=== PATIENT | male | born 1985 | race Caucasian/White ===

== ENCOUNTER 2017-05-03 10:10 | Emergency (ER) | payer OTHER ==
[~2017-05-03] VITALS: Ht 177.8 cm; Wt 100.0 kg
[2017-05-03] MEDS ORDERED: GLUCAGON FOR INJ 1 MG VIAL (J1610) IV STA (10:15)
[2017-05-03] MEDS ORDERED: ONDANSETRON 4MG/2ML VIAL (J2405) IV ONE (10:30)
[2017-05-03] MEDS ORDERED: NS 1,000 ML IV ONE (11:45)
--- NOTE | 2017-05-03 11:49 | REP ---
Chest two views HISTORY: None Comparison: None The lungs are clear. The heart is normal in size. The pulmonary vasculature is normal in appearance. The bony structure is intact. IMPRESSION: No acute disease. Signed by Eulalio Moctezuma MD 05/03/2017 11:41 A
[2017-05-03 11:51] VITALS: BP 165/76
--- NOTE | 2017-05-04 05:56 | ECGEPIP ---
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
== END 2017-05-03 12:46 | disposition home or self-care (01) ==
LOC: M ED 10:10
DX: R07.9 Chest pain, unspecified (principal)
CPT/HCPCS: 71020; 93005; 96374; 96375; 99284; J1610; J2405

== ENCOUNTER 2017-05-05 12:18 | Emergency (ER) | payer OTHER ==
[~2017-05-05] VITALS: Ht 177.8 cm; Wt 100.0 kg
[2017-05-05 16:40] LABS: BASO # 0.1 10^3/uL (0.0-0.2); BASO % 0.6 % (0.0-1.0); EOS # 0.6 10^3/uL (0.0-0.50); EOS % 6.6 % (0.0-3.0); IMMATURE GRANULOCYTE % 0.2 % (0-0); LYMPH % 23.8 % (24.0-44.0); MEAN CORPUSCULAR HEMOGLOBIN 29.2 pg (27.0-33.0); MEAN CORPUSCULAR HGB CONC 34.1 g/dl (32.0-36.5); MEAN CORPUSCULAR VOLUME 85.5 fl (80.0-96.0); MONO # 0.6 10^3/uL (0.0-0.8); MONO % 7.6 % (0.0-5.0); NEUTROPHILS # 5.1 10^3/uL (1.8-7.7); NEUTROPHILS % 61.2 % (36.0-66.0); PLATELET COUNT, AUTOMATED 203 10^3/uL (150-450); RED CELL DISTRIBUTION WIDTH 13.7 % (11.5-14.5); WHITE BLOOD COUNT 8.4 10^3/uL (4.0-10.0)
[2017-05-05 16:59] LABS: ALBUMIN 4.3 GM/DL (3.2-5.2); ALBUMIN/GLOBULIN RATIO 1.23 (1.00-1.93); ALKALINE PHOSPHATASE 56 U/L (45-117); ALT/SGPT 36 U/L (12-78); ANION GAP 8 MEQ/L (8-16); AST/SGOT 21 U/L (15-37); BILIRUBIN,TOTAL 0.5 MG/DL (0.2-1.0); BLOOD UREA NITROGEN 8 MG/DL (7-18); CALCIUM LEVEL 9.1 MG/DL (8.5-10.1); CARBON DIOXIDE LEVEL 28 MEQ/L (21-32); CHLORIDE LEVEL 102 MEQ/L (98-107); CREATININE FOR GFR 1.15 MG/DL (0.70-1.30); GLOMERULAR FILTRATION RATE > 60.0 (>60); GLUCOSE, FASTING 95 MG/DL (70-105); POTASSIUM SERUM 3.6 MEQ/L (3.5-5.1); SODIUM LEVEL 138 MEQ/L (136-145); TOTAL PROTEIN 7.8 GM/DL (6.4-8.2)
--- NOTE | 2017-05-05 17:01 | REP ---
PA and lateral chest: Comparison is 05/03/2017. The lung vargas are clear. The cardiac size is normal The judy, mediastinum, and bony thorax are unremarkable. Impression: Negative PA and lateral chest. Signed by Suleiman Alvarez MD 05/05/2017 04:52 P
[2017-05-05 17:53] VITALS: BP 138/78
--- NOTE | 2017-05-06 08:03 | ECGEPIP ---
Stationary ECG Study [facility] - ED Test Date: 2017-05-05 Pat Name: DEVIKA ARELLANO Department: Room: - Gender: M [employer]: PB : 1985 Requested By: LENORE Perez PA-C Order Number: [id number] Reading MD: Maegan Hung Measurements Intervals [place] Rate: 68 P: 18 PA: 145 QRS: 46 QRSD: 94 T: 19 QT: 375 QTc: 399 Interpretive Statements SINUS RHYTHM WITH MARKED SINUS ARRHYTHMIA SIMILAR 05/03/17 11:01 Electronically Signed On 05-06-2017 8:03:25 EDT by Maegan Hung
== END 2017-05-05 18:22 | disposition home or self-care (01) ==
LOC: M ED 12:18
DX: R07.89 Other chest pain (principal); F17.210 Nicotine dependence, cigarettes, uncomplicated; Z98.890 Other specified postprocedural states; Z87.09 Personal history of other diseases of the respiratory system

== ENCOUNTER → 2018-05-23 | Outpatient (CLI) | payer OTHER | LOC: M LRY 17:22 | DX: M25.572 Pain in left ankle and joints of left foot (principal); M79.672 Pain in left foot | CPT/HCPCS: 73610 ==

== ENCOUNTER → 2019-01-26 | Outpatient (CLI) | payer OTHER ==
--- NOTE | 2019-01-26 15:32 | REP ---
Right wrist series: Four views. History: Contusion. Findings: Four views of the right wrist demonstrate normal bones, joints, and soft tissues. No fracture or subluxation is seen. Impression: Negative right wrist radiographs. Electronically Signed by He Crowley MD 01/26/2019 03:24 P
--- NOTE | 2019-01-27 08:12 | REP ---
RIGHT HAND SERIES: Four views. HISTORY: Contusion. FINDINGS: Four views right hand show no evidence of fracture or subluxation. Overall mineralization pattern is normal. There is old irregularity of the distal end of the 1st metacarpal at the MCP joint. The exostosis of the distal end of the 1st metacarpal appears to have been resected since the June 22, 2013 prior study. IMPRESSION: No fracture or other acute bony abnormality. Electronically Signed by He Crowley MD 01/27/2019 08:40 A
== END ==
LOC: M WUC 14:57
PROVIDERS: ATTEND Physician Assistant
DX: S60.211A Contusion of right wrist, initial encounter (principal); X58.XXXA Exposure to other specified factors, initial encounter; Y92.89 Other specified places as the place of occurrence of the external cause

== ENCOUNTER → 2019-09-02 | Outpatient (REF) | payer OTHER | LOC: M LAB REF 16:03 | PROVIDERS: ATTEND Physician Assistant | DX: J02.9 Acute pharyngitis, unspecified (principal) ==

== ENCOUNTER 2019-09-16 16:48 | Emergency (ER) | payer OTHER ==
[~2019-09-16] VITALS: Ht 177.8 cm; Wt 96.2 kg
[2019-09-16] MEDS ORDERED: PRE WORK OUT (17:09)
[2019-09-16] MEDS ORDERED: GLUCAGON FOR INJ 1 MG VIAL (J1610) IV STA (17:25)
[2019-09-16 17:43] LABS: BASO # 0.1 10^3/uL (0.0-0.2); BASO % 0.6 % (0.0-1.0); EOS # 0.3 10^3/uL (0.0-0.5); EOS % 2.5 % (0.0-3.0); HEMATOCRIT 51.1 % (42.0-52.0); HEMOGLOBIN 16.9 g/dl (13.5-17.5); LYMPH % 18.7 % (24.0-44.0); MEAN CORPUSCULAR HEMOGLOBIN 28.2 pg (27.0-33.0); MEAN CORPUSCULAR HGB CONC 33.1 g/dl (32.0-36.5); MEAN CORPUSCULAR VOLUME 85.2 fl (80.0-96.0); MONO # 0.7 10^3/uL (0.0-0.8); MONO % 6.3 % (0.0-5.0); NEUTROPHILS # 7.8 10^3/uL (1.5-8.5); NEUTROPHILS % 71.6 % (36.0-66.0); PLATELET COUNT, AUTOMATED 306 10^3/uL (150-450); WHITE BLOOD COUNT 10.8 10^3/uL (4.0-10.0)
[2019-09-16 18:09] LABS: BLOOD UREA NITROGEN 9 MG/DL (7-18); CALCIUM LEVEL 9.4 MG/DL (8.5-10.1); CARBON DIOXIDE LEVEL 28 MEQ/L (21-32); CHLORIDE LEVEL 108 MEQ/L (98-107); CREATININE FOR GFR 0.98 MG/DL (0.70-1.30); GLOMERULAR FILTRATION RATE > 60.0 (>60); GLUCOSE, FASTING 91 MG/DL (70-100); POTASSIUM SERUM 4.3 MEQ/L (3.5-5.1); SODIUM LEVEL 141 MEQ/L (136-145)
[2019-09-16 20:46] VITALS: BP 152/73
== END 2019-09-16 20:50 | disposition home or self-care (01) ==
LOC: M ED 16:48
DX: T18.108A Unspecified foreign body in esophagus causing other injury, initial encounter (principal); X58.XXXA Exposure to other specified factors, initial encounter; Y92.89 Other specified places as the place of occurrence of the external cause; Z91.018 Allergy to other foods
CPT/HCPCS: 80048; 85025; 96374; 99283; J1610

== ENCOUNTER 2019-12-07 23:28 | Day surgery (SDC) | payer OTHER ==
[~2019-12-07] VITALS: Ht 177.8 cm; Wt 90.9 kg
[~2019-12-07 23:28] MED LIST: PRE WORK OUT
[2019-12-07] MEDS ORDERED: GLUCAGON INJ 1MG VIAL IV STA (23:58)
[2019-12-08] MEDS ORDERED: ONDANSETRON 4MG/2ML VIAL ONE (00:49)
[2019-12-08] MEDS ORDERED: SUCCINYLCHOLINE 100 MG/5 ML SYRINGE (J0330) ONE (00:49)
[2019-12-08] MEDS ORDERED: MIDAZOLAM INJ 2MG/2ML VIAL (J2250 PER 1MG) ONE (00:49)
[2019-12-08] MEDS ORDERED: LIDOCAINE 2% 100MG/5ML SDV (FOR ANES.) ONE (00:49)
[2019-12-08] MEDS ORDERED: fentaNYL 100 MCG/2 ML INJECTION (J3010) ONE (00:49)
[2019-12-08] MEDS ORDERED: propofoL 200 MG/20 ML VIAL ONE ×2 (00:49)
[2019-12-08] MEDS ORDERED: dexameTHASONE 4 MG/ML 1ML VIAL (J1100 PER 1MG) ONE (00:50)
[2019-12-08] MEDS ORDERED: ROCURONIUM BROMIDE 50 MG/5 ML VIAL ONE (01:44)
[2019-12-08] MEDS ORDERED: FLUT22IN INH (02:20)
[2019-12-08] MEDS ORDERED: OMEP40CA97 PO (02:20)
[2019-12-08] MEDS ORDERED: LR 1,000 ML IV SCH (02:45)
[2019-12-08 02:53] VITALS: BP 159/76
--- NOTE | 2019-12-11 10:50 | ROOR ---
Patient Name: Diego Colon Procedure Date: 12/08/2019 12:50 AM Date of : 1985 Age: 34 Room: Main OR Gender: Male Note Status: Finalized Procedure: Upper GI endoscopy Indications: Foreign body in the esophagus Providers: Chong Perez Jr, MD Referring MD: Chong Perez Jr, MD Requesting Provider: Medicines: General Anesthesia Complications: No immediate complications. Procedure: Pre-Anesthesia Assessment: - Prior to the procedure, a History and Physical was performed, and patient medications and allergies were reviewed. The patient is competent. The risks and benefits of the procedure and the sedation options and risks were discussed with the patient. All questions were answered and informed consent was obtained. Patient identification and proposed procedure were verified by the physician and the nurse in the pre-procedure area and in the procedure room. Mental Status Examination: alert and oriented. Airway Examination: normal oropharyngeal airway and neck mobility. Respiratory Examination: clear to auscultation. CV Examination: normal. ASA Grade Assessment: I - A normal, healthy patient. After reviewing the risks and benefits, the patient was deemed in satisfactory condition to undergo the procedure. The anesthesia plan was to use moderate sedation / analgesia (conscious sedation). Immediately prior to administration of medications, the patient was re-assessed for adequacy to receive sedatives. The heart rate, respiratory rate, oxygen saturations, blood pressure, adequacy of pulmonary ventilation, and response to care were monitored throughout the procedure. The physical status of the patient was re-assessed after the procedure. The Endoscope was introduced through the mouth, and advanced to the antrum of the stomach. The upper GI endoscopy was unusually difficult due to abnormal anatomy. Successful completion of the procedure was aided by changing endoscopes. The patient tolerated the procedure well. Findings: Mucosal changes including small-caliber esophagus were found in the mid esophagus and in the distal esophagus. Esophageal findings were graded using the Eosinophilic Esophagitis Endoscopic Reference Score (EoE-EREFS) as: Stricture present. The lesion was not amenable to dilation, and this was not attempted. Food was found in the mid esophagus. Removal of food was accomplished. The gastric fundus, gastric body and gastric antrum were normal. Impression: - Esophageal mucosal changes consistent with eosinophilic esophagitis. Lesion not amenable to dilation, and not attempted. - Food in the mid esophagus. Removal was successful. - Normal gastric fundus, gastric body and antrum. Recommendation: - Discharge patient to home (ambulatory). - Return to my office in 1 week. Chong Perez MD Chong Perez Jr, MD 12/11/2019 10:50:10 AM Electronically signed by Chong Perez Jr, MD Number of Addenda: 0 Note Initiated On: 12/08/2019 12:50 AM Estimated Blood Loss: Estimated blood loss: none.
== END 2019-12-08 03:23 | disposition home or self-care (01) ==
LOC: M ED 23:28 → M SDC 23:29
PROVIDERS: ATTEND Surgery
DX: T18.128A Food in esophagus causing other injury, initial encounter (principal); Y92.89 Other specified places as the place of occurrence of the external cause; Z79.899 Other long term (current) drug therapy
CPT/HCPCS: 43247; 96374; 99284; J0330; J1100; J1610; J2250; J2405; J3010; U0002

== ENCOUNTER → 2021-07-21 | Outpatient (REF) ==
[~2021-07-21] MED LIST changes: +FLUT22IN INH; +OMEP40CA4 PO
== END ==
LOC: M LABSMTC 10:35
PROVIDERS: ATTEND Pediatrics
DX: Z11.52 Encounter for screening for COVID-19 (principal)

== ENCOUNTER 2023-08-05 02:17 | Emergency (ER) | payer SELFPAY ==
[~2023-08-05] VITALS: Ht 177.8 cm; Wt 90.9 kg
[2023-08-05 02:18] VITALS: BP 150/60; TEMP 99; O2SAT 98
== END 2023-08-05 03:06 | disposition left against medical advice (07) ==
LOC: M ED 02:17
DX: Z53.21 Procedure and treatment not carried out due to patient leaving prior to being seen by health care provider (principal)

== ENCOUNTER 2025-04-28 20:29 | Emergency (ER) | payer BC, OTHER, SELFPAY ==
[~2025-04-28] VITALS: Ht 177.8 cm; Wt 96.6 kg
[2025-04-28 20:36] VITALS: TEMP 99.2
[2025-04-28] MEDS: NS (Normal Saline) 0.9% 1,000 ML IV ONE (22:07)
[2025-04-28] MEDS: ONDANSETRON 4MG 2ML VIAL IV ONE (22:07)
[2025-04-28] MEDS: GLUCAGON INJ 1 MG VIAL IV STA (22:07)
[2025-04-28] MEDS ORDERED: HOME MED LIST COMPLETE! XX SCH (22:35)
[2025-04-29 00:30] LABS: BASO # 0.1 10^3/uL (0.0-0.2); BASO % 0.6 % (0.0-1.0); EOS # 0.5 10^3/uL (0.0-0.5); EOS % 2.6 % (0.0-3.0); LYMPH # 2.8 10^3/uL (1.5-5.0); LYMPH % 16.0 % (24.0-44.0); MONO # 1.2 10^3/uL (0.0-0.8); MONO % 6.6 % (2.0-8.0); NEUTROPHILS # 12.9 10^3/uL (1.5-8.5); NEUTROPHILS % 73.9 % (36.0-66.0); PLATELET COUNT, AUTOMATED 234 10^3/uL (150-450)
[2025-04-29 00:49] LABS: CALCIUM LEVEL 8.8 MG/DL (8.5-10.1); CARBON DIOXIDE LEVEL 27 MMOL/L (20-31); CHLORIDE LEVEL 106 MMOL/L (98-107); CREATININE FOR GFR 1.02 MG/DL (0.70-1.30); GLOMERULAR FILTRATION RATE > 90.0 (>60); POTASSIUM SERUM 3.8 MMOL/L (3.5-5.1); SODIUM LEVEL 144 MMOL/L (136-145)
[2025-04-29 01:15] VITALS: BP 143/84; O2SAT 97
[2025-04-29] MEDS ORDERED: LR 1,000 ML IV SCH (05:20)
[2025-04-29] MEDS ORDERED: ONDANSETRON 4MG 2ML VIAL IV PRN (05:20)
[2025-04-29] MEDS ORDERED: PANTOPRAZOLE 40MG VIAL IV SCH (09:00)
== END 2025-04-29 01:34 | disposition home or self-care (01) ==
LOC: M ED 20:29
DX: T18.128A Food in esophagus causing other injury, initial encounter (principal)
CPT/HCPCS: 70360; 80048; 85025; 96361; 96374; 99284; J1610; J2405